=== PATIENT | male | born 1960 ===

== ENCOUNTER 2022-03-25 16:27 | Outpatient (CLI) | payer OTHER, SELFPAY ==
--- NOTE | ~2022-03-25 | MR_ITS ---
MRI of the right knee Clinical history: Traumatic effusion Technique: Coronal proton density and proton density-weighted images, sagittal proton-density and T2 fat-sat images, and axial proton-density fat-saturated images were acquired. Findings: Anterior and posterior cruciate ligaments are intact. Medial collateral ligament and the la teral collateral ligament complex are intact. Popliteus tendon is intact. There is horizontal tear of the anterior horn of the lateral meniscus extending into the body segment . No medial meniscal tear identified. Articular cartilage is well preserved throughout the knee. Bone marrow signals are unremarkable. Extensor mechanism is intact. Small joint effusion is present. There is diffuse subcutaneous soft tis corey edema about the knee. Impression: Horizontal tear of the anterior horn of the lateral meniscus extending to the body segment. Small joint effusion. Diffuse subcutaneous soft tissue edema. Reviewed, dictated and finalized at [facility]. [employer] Impression: Horizontal tear of the anterior horn of the lateral meniscus extending to the b flora segment. Small joint effusion. Diffuse subcutaneous soft tissue edema.
== END 2022-03-25 16:28 ==
LOC: MICIMG 16:29
PROVIDERS: PCP Internal Medicine; Visit Provider Orthopaedic Surgery
DX: M25.461 Effusion, right knee (principal); S83.281A Other tear of lateral meniscus, current injury, right knee, initial encounter; X58.XXXA Exposure to other specified factors, initial encounter
CPT/HCPCS: 73721